=== PATIENT | female | born 1935 | race Asian ===

== ENCOUNTER 2022-04-06 00:39 | Inpatient (IN) | payer OTHER, MEDICAID ==
[~2022-04-06] VITALS: Ht 162.6 cm; Wt 47.2 kg
[2022-04-06 00:45] VITALS: BP_SYST 160
--- NOTE | 2022-04-06 01:25 | NUR ---
PATIENT PLACED IN BED 2.
--- NOTE | 2022-04-06 01:30 | NUR ---
# 20 gauge angiocath placed to R FA. Use of asceptic technique. Opsite placed over site. Blood return noted. Blood for lab drawn from site. Flushed with 10 cc of normal saline. No evidence of infiltration noted. Patient tolerated well.
--- NOTE | 2022-04-06 01:31 | NUR ---
ROBERT AND MRSA COLLECTED AND SENT TO LAB
--- NOTE | 2022-04-06 01:32 | NUR ---
ERMD AT BEDSIDE EVALUATING PATIENT
[2022-04-06 02:02] LABS: BASOPHILS # (AUTO) 0.1 K/uL (0.0-0.2); BASOPHILS % (AUTO) 1.2 % (0.0-2.0); EOSINOPHILS # (AUTO) 0.1 K/uL (0.0-0.4); EOSINOPHILS % (AUTO) 0.9 % (0.0-4.0); HEMATOCRIT 33.9 % (36-48); HEMOGLOBIN 11.4 g/dL (12.0-16.0); LYMPHOCYTES # (AUTO) 2.6 K/uL (1.0-5.5); LYMPHOCYTES % (AUTO) 26.6 % (20.5-51.5); MEAN CORPUSCULAR HEMOGLOBIN 31 pg (27-31); MEAN CORPUSCULAR HGB CONC 34 % (32-36); MEAN CORPUSCULAR VOLUME 92 fL (79.0-98.0); MONOCYTES # (AUTO) 0.8 K/uL (0.0-1.0); MONOCYTES % (AUTO) 8.3 % (1.7-9.3); NEUTROPHILS # (AUTO) 6.3 K/uL (1.8-7.7); PLATELET COUNT (AUTO) 323 K/uL (130-430); RED BLOOD CELL COUNT(AUTO) 3.69 MIL/uL (4.2-6.2); RED CELL DISTRIBUTION WIDTH 16.6 % (9.0-15.0); WHITE BLOOD COUNT (AUTO) 9.9 K/uL (4.8-10.8)
[2022-04-06 02:03] LABS: ANION GAP 9 (5-15); CALCIUM 8.7 mg/dL (8.4-11.0); CHLORIDE 97 mmol/L (98-107); CREATININE 1.21 mg/dL (0.55-1.30); GLUCOSE 154 mg/dL (70-99); UREA NITROGEN, BLOOD 26 mg/dL (8-21)
[2022-04-06 02:09] LABS: BILIRUBIN,URINE NEGATIVE (NEGATIVE); BLOOD, URINE 1+ (NEGATIVE); CLARITY/URINE SL CLOUDY (CLEAR); COLOR,URINE YELLOW (YELLOW); GLUCOSE,URINE NEGATIVE (NEGATIVE); KETONES,URINE NEGATIVE (NEGATIVE); LEUKOCYTE ESTERASE ,URINE 2+ (NEGATIVE); NITRITE, URINE NEGATIVE (NEGATIVE); PROTEIN URINE 2+ (NEGATIVE); UROBILINOGEN,URINE 0.2 (0.2-1.0)
[2022-04-06 02:11] LABS: ALANINE AMINOTRANSFERASE 121 U/L (12-78); ALBUMIN 2.8 g/dL (3.4-4.8); ASPARTATE AMINOTRANSFERASE 62 U/L (10-37); TOTAL BILIRUBIN 0.3 mg/dL (0.0-1.0)
--- NOTE | 2022-04-06 02:15 | NUR ---
PATIENT TAKEN TO RAD
[2022-04-06 02:16] LABS: BACTERIA,URINE MODERATE /HPF (None Seen); WBC,URINE >100 /HPF (0-3)
--- NOTE | 2022-04-06 02:27 | NUR ---
PT [facility] W C/O OF GENERALIZED WEAKNESS AND BILAT LOWER EXTREM NUMBNESS. PT IS NON AMBULATORY BUT ABLE TO ASSIST WITH REPOSITIONING. PT USES [facility]. PT IS LEGALLY BLIND. A/O X 3
--- NOTE | 2022-04-06 02:27 | NUR ---
[facility] [phone]
[2022-04-06] MEDS ORDERED: cefTRIAXone 2 GM VIAL ONE (02:43)
[2022-04-06] MEDS ORDERED: NACL 0.9% 1,000 ML IV ONE (02:45)
--- NOTE | 2022-04-06 03:12 | NUR ---
Patient diaper changed.
--- NOTE | 2022-04-06 04:28 | NUR ---
Admit bed requested Patient will be admitted to care of Dr. TRIPP. Admitted to MED SURG unit. Diagnosis DEHYDRATION & UTI Inpatient (Yes or No) YES Observation (Yes or No) NO Orientation concerns or request close to nursing station (Yes or No) NO Covid Status NEG On vent or bipap NO Isolation requirements NO Needs a sitter NO From Home (Yes or if No enter name of facility) NO Requires Dialysis (Yes or No) NO Med Rec Completed (Yes of No) YES
--- NOTE | 2022-04-06 05:18 | NUR ---
Patient repositioned for comfort.
[2022-04-06] MEDS ORDERED: INSULIN REGULAR, HUMAN 100 UNITS/ML, 3 ML VIAL (humuLIN R) SUBCUT SCH (07:00)
--- NOTE | 2022-04-06 07:30 | NUR ---
RECEIVED PT FROM NICHOLE BELL. ASSUMED CARE. PT IS AAOX1-2. NORMAL S1S2 NOTED. ON R/A. ABDOMEN SOFT, NONTENDER, NONDISTENED. DENIES N/V. INCONTINENT BLADDER/BOWEL. BEDBOUND. IV CATH TO RFA 20G S/L. DENIES PAIN.
[2022-04-06] MEDS ORDERED: BISACODYL SUPP PR (08:27)
[2022-04-06] MEDS ORDERED: DOCU-156 PO (08:27)
[2022-04-06] MEDS ORDERED: MELA5TAB12 PO (08:27)
[2022-04-06] MEDS ORDERED: COMBIGAN LEFT EYE (08:27)
[2022-04-06] MEDS ORDERED: DORZ10DR9 LEFT EYE (08:27)
[2022-04-06] MEDS ORDERED: FAMO20TA8 PO (08:27)
[2022-04-06] MEDS ORDERED: LEVO100T9 PO (08:27)
[2022-04-06] MEDS ORDERED: FERROUS SULFATE PO (08:27)
[2022-04-06] MEDS ORDERED: LIP40 PO (08:27)
[2022-04-06] MEDS ORDERED: FLEETMO RC (08:27)
[2022-04-06] MEDS ORDERED: CRAN450T9 PO (08:27)
[2022-04-06] MEDS ORDERED: ASA81 PO (08:27)
[2022-04-06] MEDS ORDERED: AMIO400T5 PO (08:27)
[2022-04-06] MEDS ORDERED: METF-379 PO (08:27)
[2022-04-06] MEDS ORDERED: LISI-209 PO (08:27)
[2022-04-06] MEDS ORDERED: ACET325T53 PO (08:28)
[2022-04-06] MEDS ORDERED: CALC-939 PO (08:28)
[2022-04-06] MEDS ORDERED: DRON400T PO (08:28)
[2022-04-06] MEDS ORDERED: TAFL1DRO LEFT EYE (08:28)
[2022-04-06] MEDS ORDERED: MOM PO (08:28)
[2022-04-06] MEDS ORDERED: PROP10DR2 EACH EYE (08:28)
[2022-04-06] MEDS ORDERED: SODIUM CHLORIDE PO (08:28)
[2022-04-06] MEDS ORDERED: NETA2.5D LEFT EYE (08:28)
[2022-04-06] MEDS ORDERED: ACET-2634 PO (08:28)
--- NOTE | 2022-04-06 08:28 | NUR ---
Medication reconciliation completed with information provided by [facility]. Any prior medication reconciliation on file was reviewed and corrected.
[2022-04-06] MEDS ORDERED: DEXTROSE 50% JECT 50 ML DISP.SYRIN IVP PRN (11:00)
--- NOTE | 2022-04-06 15:16 | NUR ---
Patient will be admitted to care of NICHOLE ANDERSON. Admitted to [facility] unit. Will go to room 132C. Belongings list completed. Complete and up to date summary report printed. SBAR report to be given at bedside with opportunity for questions.
--- NOTE | 2022-04-06 15:18 | NUR ---
Received report from Yamini VARELA (from ER)
[2022-04-06 15:48] VITALS: BP_SYST 168
--- NOTE | 2022-04-06 16:00 | NUR ---
ADMISSION NOTE Received patient from ER via gurney. Patient admitted with diagnosis of dehydration/UTI. Patient legally blind is awake, alert, oriented X 4.Respiration even and unlabored, no signs of distress. IV saline lock to right hand patent Patient oriented to hospital room, Call light within reached, bed in low position,will continue to monitor.
[2022-04-06] MEDS ORDERED: ACETAMINOPHEN 325 MG TABLET PO PRN ×2 (17:00)
[2022-04-06] MEDS ORDERED: ACETAMINOPHEN 500 MG TABLET PO PRN (17:00)
[2022-04-06] MEDS ORDERED: MILK OF MAGNESIA 30 ML UDC PO PRN (17:00)
[2022-04-06] MEDS ORDERED: BISACODYL 10 MG PR PRN (17:00)
--- NOTE | 2022-04-06 19:30 | NUR ---
Closing No c/o SOB/pain, maintain safety precaution during my shift, will endorse.
--- NOTE | 2022-04-06 20:00 | NUR ---
ASSESSMENT COMPLETE, NO DISTRESS NOTED, COMFORT MAINTAINED, TOTAL CARE WITH ADL, PATIENT LEGALLY BLIND
[2022-04-06 20:30] VITALS: BP_SYST 177
[2022-04-06] MEDS ORDERED: BRIMONIDINE TAR. 0.2%/TIMOLOL 0.5% EYE DROPS 5 ML LEFT EYE SCH (21:00)
[2022-04-06] MEDS ORDERED: NETARSUDIL MESYLATE LEFT EYE SCH (21:00)
[2022-04-06] MEDS ORDERED: NON-FORMULARY MEDICATION ([Ferrous Sulfate] 325 MG) PO SCH (21:00)
[2022-04-06] MEDS ORDERED: TAFLUPROST LEFT EYE SCH (21:00)
[2022-04-06] MEDS ORDERED: NON-FORMULARY MEDICATION (Cranberry Fruit (Cranberry) 450 MG) PO SCH (21:00)
[2022-04-06] MEDS ORDERED: NON-FORMULARY MEDICATION (Melatonin 1 TAB) PO SCH (21:00)
[2022-04-06] MEDS ORDERED: BISACODYL 10 MG/SUPPOSITORY RC PRN (21:15)
[2022-04-06] MEDS: DOCUSATE SODIUM 100 MG CAPSULE PO SCH (23:44)
[2022-04-06] MEDS: ATORVASTATIN 20 MG TABLET PO SCH (23:44)
[2022-04-06] MEDS: NACL 0.9% 1,000 ML IV SCH (23:45)
[2022-04-06] MEDS: cefTRIAXone 1 GM in D5W 50 ML IV SCH (23:45)
[2022-04-06] MEDS: CALCIUM CARBONATE/VITAMIN D3 1 TAB TABLET PO SCH (23:46)
--- NOTE | 2022-04-06 23:50 | NUR ---
GLUCOSE 168, NO INSULIN GIVEN, PATIENT REFUSE SNACK THIS LATE, WILL RECHECK BLOOD SUGAR IN AM PER ORDERS
[2022-04-07] VITALS (7 sets, daily range): BP systolic 161–189
[2022-04-07] MEDS: NACL 0.9% 1,000 ML IV SCH ×3 (00:30→22:19)
--- NOTE | 2022-04-07 01:15 | NUR ---
PER TECH MIDNIGHT VITAL SIGNS B/P 184/98, P80, PAGED DR TRIPP, NO RETURN CALL, RECHECK B/P AT 0115 161/85 P73
[2022-04-07] MEDS: LEVOTHYROXINE SODIUM 0.1 MG TABLET PO SCH (06:07)
[2022-04-07] MEDS: INSULIN REGULAR, HUMAN 100 UNITS/ML, 3 ML VIAL (humuLIN R) SUBCUT PRN ×3 (06:16→17:01)
[2022-04-07 06:26] LABS: BASOPHILS # (AUTO) 0.1 K/uL (0.0-0.2); BASOPHILS % (AUTO) 0.7 % (0.0-2.0); EOSINOPHILS # (AUTO) 0.1 K/uL (0.0-0.4); EOSINOPHILS % (AUTO) 0.7 % (0.0-4.0); HEMATOCRIT 35.2 % (36-48); HEMOGLOBIN 11.9 g/dL (12.0-16.0); LYMPHOCYTES # (AUTO) 2.1 K/uL (1.0-5.5); LYMPHOCYTES % (AUTO) 23.8 % (20.5-51.5); MEAN CORPUSCULAR HEMOGLOBIN 31 pg (27-31); MEAN CORPUSCULAR HGB CONC 34 % (32-36); MEAN CORPUSCULAR VOLUME 91 fL (79.0-98.0); MONOCYTES # (AUTO) 0.7 K/uL (0.0-1.0); MONOCYTES % (AUTO) 8.2 % (1.7-9.3); NEUTROPHILS % (AUTO) 66.6 % (40.0-70.0); PLATELET COUNT (AUTO) 311 K/uL (130-430); RED BLOOD CELL COUNT(AUTO) 3.86 MIL/uL (4.2-6.2); RED CELL DISTRIBUTION WIDTH 16.6 % (9.0-15.0)
[2022-04-07 06:41] LABS: ALANINE AMINOTRANSFERASE 130 U/L (12-78); ALBUMIN 2.7 g/dL (3.4-4.8); ANION GAP 9 (5-15); ASPARTATE AMINOTRANSFERASE 70 U/L (10-37); CALCIUM 8.4 mg/dL (8.4-11.0); CHLORIDE 94 mmol/L (98-107); CREATININE 0.76 mg/dL (0.55-1.30); GLUCOSE 167 mg/dL (70-99); TOTAL BILIRUBIN 0.2 mg/dL (0.0-1.0); UREA NITROGEN, BLOOD 16 mg/dL (8-21)
--- NOTE | 2022-04-07 08:00 | NUR ---
Received patient wake in bed alert oriented x.2. Respiration even and unlabored, no signs of distress. Patient reposition, IV infusing to right forearm patent. All safety precaution secure , bed in low position call light w/in reached
[2022-04-07] MEDS ORDERED: DRONEDARONE HYDROCHLORIDE 400 MG TABLET PO SCH (09:00)
[2022-04-07] MEDS: ASPIRIN 81 MG TAB.CHEW PO SCH (09:01)
[2022-04-07] MEDS: SODIUM CHLORIDE 500 MG TABLET PO SCH ×3 (09:02→21:00)
[2022-04-07] MEDS: CALCIUM CARBONATE/VITAMIN D3 1 TAB TABLET PO SCH ×2 (09:02→21:00)
[2022-04-07] MEDS: FERROUS SULFATE 325 MG TABLET.DR PO SCH ×2 (09:02→21:00)
[2022-04-07] MEDS: DOCUSATE SODIUM 100 MG CAPSULE PO SCH ×2 (09:02→21:00)
[2022-04-07] MEDS: AMIODARONE HCL 200 MG TABLET PO SCH (09:03)
[2022-04-07] MEDS: lisinopriL 5 MG TABLET PO SCH (09:04)
[2022-04-07] MEDS: PEG 400/HYPROMELLOSE/GLYCERIN 15 ML DROPS EACH EYE SCH ×3 (09:13→22:26)
[2022-04-07] MEDS: TIMOLOL MALEATE 0.5% OPHTHALMIC DROPS 5 ML LEFT EYE SCH ×2 (09:15→22:27)
[2022-04-07] MEDS: BRIMONIDINE TARTRATE 0.2% 5 mL EYE DROPS LEFT EYE SCH ×2 (09:17→22:27)
[2022-04-07] MEDS ORDERED: FAMOTIDINE 20 MG TABLET PO ONE (10:00)
--- NOTE | 2022-04-07 18:54 | NUR ---
Closing No c/o SOB/pain, maintain safety precaution during my shift, will endorse.
--- NOTE | 2022-04-07 19:30 | NUR ---
REPORT RECEIVED, NO DISTRESS NOTED, COMFORT MAINTAINED, PATIENT ANXIOUS AT TIMES, PATIENT A FEEDER FOR ALL MEALS, IT SUPPORT CONSULTANT TO ASSIST WITH DINNER, PATIENT LEGALLY BLIND AND HAS APPROPRIATE CALL LIGHT WITHIN REACH
[2022-04-07] MEDS ORDERED: TAFLUPROST OP SCH (21:00)
[2022-04-07] MEDS: ATORVASTATIN 20 MG TABLET PO SCH (21:00)
[2022-04-07] MEDS ORDERED: NETARSUDIL MESYLATE OP SCH (21:00)
[2022-04-07] MEDS ORDERED: MELATONIN 5 MG TABLET PO SCH (21:00)
[2022-04-07] MEDS: metFORMIN HCL 500 MG TABLET PO SCH (22:22)
[2022-04-07] MEDS: cefTRIAXone 1 GM in D5W 50 ML IV SCH (22:24)
[2022-04-08] VITALS: BP_SYST 140
[2022-04-08 04:00] VITALS: BP_SYST 138
--- NOTE | 2022-04-08 05:00 | NUR ---
PATIENT REFUSE ALL INSULIN SLIDING SCALE COVERAGE, UNABLE TO GIVE HOME EYE DROPS, IN-HOUSE PHARMACY UNAVAILABLE AFTER 9:30PM, WILL INFORM ON-COMING SHIFT, TOTAL CARE WITH ADL, FEEDER FOR ALL MEALS, TURN Q2HRS AND PRN, PATIENT WOULD ONLY TAKE METFORMIN, MELATONIN, AND SCHEDULE EYE GTTS, PATIENT TAKES ALL ORAL MEDICATION WITH WARM WATER, PATIENT SLEPT WELL DURING SHIFT AFTER MELATONIN GIVEN
[2022-04-08 06:17] LABS: BASOPHILS # (AUTO) 0.1 K/uL (0.0-0.2); BASOPHILS % (AUTO) 0.7 % (0.0-2.0); EOSINOPHILS # (AUTO) 0.1 K/uL (0.0-0.4); EOSINOPHILS % (AUTO) 0.9 % (0.0-4.0); HEMATOCRIT 35.5 % (36-48); HEMOGLOBIN 11.9 g/dL (12.0-16.0); LYMPHOCYTES # (AUTO) 1.8 K/uL (1.0-5.5); LYMPHOCYTES % (AUTO) 21.4 % (20.5-51.5); MEAN CORPUSCULAR HEMOGLOBIN 31 pg (27-31); MEAN CORPUSCULAR HGB CONC 33 % (32-36); MEAN CORPUSCULAR VOLUME 92 fL (79.0-98.0); MONOCYTES # (AUTO) 0.7 K/uL (0.0-1.0); MONOCYTES % (AUTO) 8.2 % (1.7-9.3); NEUTROPHILS # (AUTO) 5.8 K/uL (1.8-7.7); NEUTROPHILS % (AUTO) 68.8 % (40.0-70.0); PLATELET COUNT (AUTO) 276 K/uL (130-430); RED BLOOD CELL COUNT(AUTO) 3.85 MIL/uL (4.2-6.2); RED CELL DISTRIBUTION WIDTH 15.9 % (9.0-15.0); WHITE BLOOD COUNT (AUTO) 8.5 K/uL (4.8-10.8)
[2022-04-08 06:48] LABS: ANION GAP 10 (5-15); CHLORIDE 100 mmol/L (98-107); CREATININE 0.88 mg/dL (0.55-1.30); GLUCOSE 158 mg/dL (70-99); UREA NITROGEN, BLOOD 15 mg/dL (8-21)
[2022-04-08] MEDS: LEVOTHYROXINE SODIUM 0.1 MG TABLET PO SCH (07:53)
[2022-04-08] MEDS: CALCIUM CARBONATE/VITAMIN D3 1 TAB TABLET PO SCH (09:00)
[2022-04-08] MEDS ORDERED: FAMOTIDINE 20 MG TABLET PO SCH (09:00)
--- NOTE | 2022-04-08 09:56 | NUR ---
Spoke to patient's son, Maninder, he agreed for her to return to [facility] today. Referral sent to [facility]- [phone]
[2022-04-08] MEDS: metFORMIN HCL 500 MG TABLET PO SCH (11:06)
[2022-04-08] MEDS: FERROUS SULFATE 325 MG TABLET.DR PO SCH (11:07)
[2022-04-08] MEDS: DOCUSATE SODIUM 100 MG CAPSULE PO SCH (11:07)
[2022-04-08] MEDS: ASPIRIN 81 MG TAB.CHEW PO SCH (11:07)
[2022-04-08] MEDS: SODIUM CHLORIDE 500 MG TABLET PO SCH (11:08)
[2022-04-08] MEDS: lisinopriL 5 MG TABLET PO SCH (11:09)
[2022-04-08] MEDS: AMIODARONE HCL 200 MG TABLET PO SCH (11:10)
[2022-04-08 11:55] VITALS: BP_SYST 142
[2022-04-08 13:28] VITALS: BP_SYST 142
[2022-04-08 14:20] VITALS: BP_SYST 158
[2022-04-08] MEDS ORDERED: MEGESTROL ACETATE 400 MG/10 ML UDC PO ONE (14:45)
[2022-04-08] MEDS ORDERED: MIRTAZAPINE 15 MG TABLET PO SCH (21:00)
[2022-04-09] MEDS ORDERED: MEGESTROL ACETATE 400 MG/10 ML UDC PO SCH (09:00)
== END 2022-04-08 16:15 | DRG 640 ==
LOC: SED 00:39 → EDSEX 00:39 → SMU 04:22
PROVIDERS: ADMIT Internal Medicine; ATTEND Internal Medicine
DX: E86.0 Dehydration (principal); G93.41 Metabolic encephalopathy; N17.0 Acute kidney failure with tubular necrosis; N39.0 Urinary tract infection, site not specified; E44.0 Moderate protein-calorie malnutrition; Z68.1 Body mass index [BMI] 19.9 or less, adult; E87.1 Hypo-osmolality and hyponatremia; I10 Essential (primary) hypertension; E03.9 Hypothyroidism, unspecified; D64.9 Anemia, unspecified; E78.00 Pure hypercholesterolemia, unspecified; I25.10 Atherosclerotic heart disease of native coronary artery without angina pectoris; D63.8 Anemia in other chronic diseases classified elsewhere; E11.51 Type 2 diabetes mellitus with diabetic peripheral angiopathy without gangrene; K80.20 Calculus of gallbladder without cholecystitis without obstruction; Z20.822 Contact with and (suspected) exposure to COVID-19; E11.42 Type 2 diabetes mellitus with diabetic polyneuropathy; R26.81 Unsteadiness on feet; M47.816 Spondylosis without myelopathy or radiculopathy, lumbar region; M19.90 Unspecified osteoarthritis, unspecified site; K21.9 Gastro-esophageal reflux disease without esophagitis; Z79.1 Long term (current) use of non-steroidal anti-inflammatories (NSAID); Z79.899 Other long term (current) drug therapy; Z79.82 Long term (current) use of aspirin
CPT/HCPCS: 36415; 70450-TC; 71045; 76376; 80048; 80053; 81000; 83605; 83880; 84484; 85025; 87040; 87081; 87086; 87186-TC; 93005; 96365; 97110-GP; 97112-GP; 97163-GP; 97530-GP; 99285; J0696; J1815; J7030; J7060